=== PATIENT | female | born 1980 ===

== ENCOUNTER 2017-01-05 22:41 | Emergency (ER) | payer MEDICAID, OTHER ==
[2017-01-05 22:42] VITALS: BMI 19.5
[2017-01-05 22:57] VITALS: PULSE 68; TEMP 97.9
--- NOTE | 2017-01-05 23:36 | ED PDOC ---
HPI: Skin/Bite Injury Time Seen by Provider: 01/05/17 23:06 Chief Complaint (Nursing): Medical Clearance Chief Complaint (Provider): arm pain and dizziness History Per: Patient Onset/Duration Of Symptoms: Days (1 month) Additional Complaint(s): bilateral forearm swelling for about a month constant worsening since onset intermittently draining purulent discharge, she reports LEFT arm started a month ago and RIGHT arm started just a week ago subjective fever and chills also reporting dizziness pt is under police custody known [facility]DA and admits that she regularly injects cocaine and heroin Past Medical History Reviewed: Historical Data, Nursing Documentation, Vital Signs Vital Signs: Last Vital Signs Temp 97.9 F 01/05/17 22:55 Pulse 68 01/06/17 03:22 Resp 16 01/06/17 03:22 BP 110/62 01/06/17 03:22 Pulse Ox 100 01/06/17 03:48 - Medical History PMH: Anxiety, Depression, Diverticulitis, Gall Bladder Disease, HTN, Hypercholesterolemia, Migraine Denies: Diabetes Other PMH: Above history obtained from previous chart - Surgical History Surgical History: Cholecystectomy, Tonsillectomy (05/2013) - Family History Family History: States: Unknown Family Hx - Social History Current smoker - smoking cessation education provided: Yes Drugs: Cocaine, Opiates - Immunization History Hx Tetanus Toxoid Vaccination: Yes Hx Influenza Vaccination: Yes Hx Pneumococcal Vaccination: Yes - Home Medications Home Medications: Ambulatory Orders Medication Instructions Recorded Alprazolam [Xanax] 1 mg PO BID PRN 08/26/15 Oxycodone HCl [Roxicodone] 30 mg PO Q4 PRN 08/26/15 Sulfamethoxazole/Trimethoprim 1 tab PO BID 7 Days 12/09/16 [Bactrim DS 800 mg-160 mg] - Allergies Allergies/Adverse Reactions: Allergies Allergy/AdvReac Type Severity Reaction Status Date / Time adhesive tape Allergy RASH Verified 01/05/17 22:57 Review of Systems ROS Statement: Except As Marked, All Systems Reviewed And Found Negative Constitutional: Positive for: Fever, Chills, Weakness, Malaise Respiratory: Positive for: Shortness of Breath Musculoskeletal: Positive for: Arm Pain Skin: Positive for: Rash, Lesions Physical Exam - Reviewed Nursing Documentation Reviewed: Yes Vital Signs Reviewed: Yes - Physical Exam Appears: Positive for: Non-toxic, No Acute Distress Head Exam: Positive for: ATRAUMATIC, NORMOCEPHALIC Skin: Positive for: Normal Color (see extremity exam), Warm, Dry Eye Exam: Positive for: EOMI, PERRL Neck: Positive for: Painless ROM, Supple Cardiovascular/Chest: Positive for: Regular Rate, Rhythm. Negative for: Murmur Respiratory: Positive for: Normal Breath Sounds. Negative for: Wheezing Gastrointestinal/Abdominal: Positive for: Soft. Negative for: Tenderness Back: Negative for: Vertebral Tenderness Extremity: Positive for: Normal ROM, Other (bilateral forearm with multiple dry lesions and diffuse induration and areas of firm swelling, minimal erythema and no discrete fluctuant areas, diffuse tenderness to palpation at these sites as well, no active discharge appreciated). Negative for: Deformity Lymphatic: Negative for: Adenopathy Neurologic/Psych: Positive for: Alert. Negative for: Motor/Sensory Deficits - Laboratory Results Result Diagrams: 01/05/17 23:41 01/05/17 23:41 - ECG O2 Sat by Pulse Oximetry: 100 Medical Decision Making Medical Decision Making: Reviewed chart and previous admission to [facility] for cellulitis of forearms 12/09. IV antibiotics were started at that time Per chart, advised to stay but left against medical advice. She had refused to sign AMA paperwork. When questioned, pt reports she was told to leave and that she was discharged but she wanted to stay. On my evaluation of her arms, findings appear of a more chronic quality than acute infection, and improved compared with descriptions given on chart at previous hospital stay. Disposition - Clinical Impression Clinical Impression: Polysubstance abuse, Adjustment disorder, Chronic cellulitis - Disposition Disposition: Transfer of Care Disposition Time: 00:00 Condition: STABLE Patient Signed Over To: Chris Orozco Handoff Comments: pending ER workup and final ER disposition
[2017-01-05] MEDS ORDERED: Sodium Chloride 0.9% 1,000 ML IV STA (23:59)
[2017-01-06 01:05] LABS: BASO % 0.5 % (0.0-2.0); EOS # 0.1 K/uL (0.0-0.7); EOS % 1.8 % (0.0-4.0); HEMATOCRIT 21.2 % (34.0-47.0); LYMPH # 1.6 K/uL (1.0-4.3); MEAN CELL VOLUME 67.7 fl (81.0-99.0); MEAN CORPUSCULAR HEMOGLOBIN 20.9 pg (27.0-31.0); MEAN CORPUSCULAR HGB CONC 30.9 g/dL (33.0-37.0); MEAN PLATELET VOLUME 7.5 fl (7.2-11.7); MONO # 0.6 K/uL (0.0-0.8); MONO % 9.3 % (0.0-10.0); NEUT # 4.3 K/uL (1.8-7.0); NEUT % 64.4 % (50.0-75.0); RED CELL DISTRIBUTION WIDTH 17.1 % (11.5-14.5); WHITE BLOOD COUNT 6.6 K/uL (4.8-10.8)
[2017-01-06 01:09] LABS: VENOUS BLOOD GAS BASE EXCESS -1.7 mmol/L (0.0-2.0); VENOUS BLOOD GAS PCO2 82 mmHg (40-60); VENOUS BLOOD PH 7.16 (7.32-7.43)
[2017-01-06 01:09] LABS: ALB/GLOB RATIO 0.9 (1.0-2.1); ALKALINE PHOSPHATASE 70 U/L (38-126); ALT/SGPT 32 U/L (9-52); AST/SGOT 30 U/L (14-36); BILIRUBIN,TOTAL 0.1 mg/dl (0.2-1.3); BLOOD UREA NITROGEN 14 mg/dl (7-17); CALCIUM 8.6 mg/dL (8.4-10.2); CARBON DIOXIDE 29 mmol/L (22-30); CHLORIDE 104 mmol/L (98-107); GFR AFRICAN-AMERICAN > 60; GLUCOSE,RANDOM 139 mg/dL (65-105); POTASSIUM 3.7 MMOL/L (3.6-5.0); SODIUM 139 mmol/l (132-148); TOTAL PROTEIN 7.2 G/DL (6.3-8.2)
[2017-01-06 01:21] LABS: PARTIAL THROMBOPLASTIN TIME 32.1 Seconds (25.6-37.1)
--- NOTE | 2017-01-06 01:51 | ED PDOC ---
- Laboratory Results Result Diagrams: 01/05/17 23:41 01/05/17 23:41 - ECG O2 Sat by Pulse Oximetry: 100 (RA) Pulse Ox Interpretation: Normal Medical Decision Making Medical Decision Making: Time: 0000 Initial plan: Patient signed out to me by Dr. Castillo. Pending Labs and Crisis evaluation. 0145: Re-evaluation LAB Results: No acute or clinically significant abnormalities noted. Hemoglobin notably low, however it is unchanged from previous studies, and patient has no sympotomatic anemia. 0230: Discharge crisis has cleared pt after evaluation; she is released to law enforcement under arrest. Scribe Attestation: Documented by Leigh Ann Gomez, acting as a scribe for Raisa Carrizales MD MD Scribe Attestation: All medical record entries made by the Scribe were at my direction and personally dictated by me. I have reviewed the chart and agree that the record accurately reflects my personal performance of the history, physical exam, medical decision making, and the department course for this patient. I have also personally directed, reviewed, and agree with the discharge instructions and disposition. Disposition - Clinical Impression Clinical Impression: Polysubstance abuse, Adjustment disorder, Chronic cellulitis - POA Present On Arrival: None - Disposition Disposition: Discharged/Transfer to Law Enforcement Disposition Time: 02:00 Condition: STABLE Additional Instructions: Patient is medically and psychiatrically stable for incarceration Instructions: Narcotic Abuse (ED)
[2017-01-06 03:23] VITALS: BP 110/62; RESP 16
[2017-01-06 03:48] VITALS: O2SAT 100
== END 2017-01-06 03:34 ==
LOC: H.ER 22:41
DX: F43.20 Adjustment disorder, unspecified (principal); F19.10 Other psychoactive substance abuse, uncomplicated; L03.90 Cellulitis, unspecified; E78.00 Pure hypercholesterolemia, unspecified; F32.9 Major depressive disorder, single episode, unspecified; F41.9 Anxiety disorder, unspecified; I10 Essential (primary) hypertension